=== PATIENT | female | born 1945 | race Caucasian/White ===

== ENCOUNTER 2018-12-11 21:33 | Inpatient (IN) | payer MEDICARE, OTHER ==
[~2018-12-11] VITALS: Ht 157.5 cm; Wt 62.1 kg
[~2018-12-11 21:33] MED LIST: ACET325T53 PO; HYDR-3972 PO; MAG30ORA PO; METO25TA20 PO; RIVA10TA PO; ZOLP5TAB2 PO
[2018-12-11 23:00] VITALS: BP 158/97
[2018-12-11 23:05] VITALS: BP 158/97
[2018-12-11] MEDS ORDERED: ZOLPIDEM TARTRATE 5 MG TABLET PO PRN (23:30)
[2018-12-11] MEDS ORDERED: MAG HYDROX/AL HYDROX/SIMETH 30 ML UDC PO PRN ×2 (23:30)
[2018-12-11] MEDS ORDERED: Z GUARD REMEDY 2 OZ OINT TP PRN (23:30)
[2018-12-11] MEDS ORDERED: HYDROCODONE/APAP 5/325MG 1 EACH TABLET PO PRN (23:30)
[2018-12-11] MEDS ORDERED: ACETAMINOPHEN 325 MG TABLET PO PRN (23:30)
[2018-12-11] MEDS ORDERED: MAGNESIUM HYDROXIDE 30 ML UDC PO PRN (23:30)
[2018-12-11] MEDS: IV NS 0.9% 1,000 ML IV PRN (23:54)
[2018-12-12] MEDS: MORPHINE SULFATE INJ 2 MG/ML DISP.SYRIN IV PRN ×4 (01:28→16:44)
--- NOTE | 2018-12-12 02:13 | NUR ---
RECEIVE PT FROM [facility] [employer] [employer] WITH 2 EMT ADMIT PT TO MED SURG UNIT AT 12/11/2018 AT 2300 S/P GROUND LEVEL FALL DENIES HITTING HEAD, NO CHEST PAIN. WELL DEVELOPED. ALERT TO PERSON, PLACE, TIME APPEARS WELL NOURISHED NOT IN DISTRESS STABLE RESPIRATIONS EVEN AND UNLABORED, SKIN IS WARM NO RASH NOTED, AFEBRILE, TOLERATING ROOM AIR. HEAD TO TOE ASSESSMENT IS DONE SKIN INTACT, NO REDNESS, KEPT CLEAN AND DRY, COMFORTABLE. DECREASED ROM TO THE LEFT LEG, SENSATION OF THE BOTH LEG INTACT. NWB LEFT LEG. SAFETY MEASURES AT ALL TIMES. WILL CONTINUE TO MONITOR.
--- NOTE | 2018-12-12 06:29 | NUR ---
MS RN SLEPT WELL THROUGHOUT THE NIGHT. NO SIGNIFICANT CHANGES THROUGHOUT THE SHIFT. RESPIRATIONS EVEN AND UNLABORED. KEPT CLEAN AND DRY AND COMFORTABLE. NEEDS ATTENDED AND ANTICIPATED, AM CARE RENDERED, SENSATION OF THE BOTH LEG INTACT. NWB LEFT LEG, OFFLOAD HEELS AND ELBOWS. ASSISTED REPOSITION EVERY 2 HOURS. SAFETY MEASURES AT ALL TIMES. ENDORSE TO THE NEXT SHIFT.
[2018-12-12] MEDS: PANTOPRAZOLE 40 MG TABLET.DR PO SCH ×2 (07:30→08:39)
[2018-12-12 08:00] VITALS: BP 155/80
--- NOTE | 2018-12-12 08:00 | NUR ---
RN NOTES RECEIVED PATIENT IN THE BED A/O X4, PATIENT HAS NO ACUTE RESPIRATORY DISTRESS. PATIENT HAS A LEFT FEMUR FRACTURE PER X-RAY. PATIENT REFUSED PAIN. SEEN BY MATERIAL HANDLER [address] SH[address] Dr. BURCIAGA, AND GEARCASE ASSEMBLER Dr. CAR. ORTHO CONSULT ON Dr ORELLANA AWARE OF. ASSIST TURN AND REPOSTION Q 2 HR. CARVER CATHETER DRAINING LIGHT YELLOW OUTPUT, IV ACCESS ON RIGHT AC AREA INFUSING NS AT 75 ML/HR INTACT. CALL LIGHT WITHIN TO REACH. CONTINUED MONITORING.
[2018-12-12 08:17] LABS: APPEARANCE,URINE CLOUDY (CLEAR); BILIRUBIN,URINE NEGATIVE (NEGATIVE); BLOOD, URINE 2+ Ery/uL (NEGATIVE); COLOR,URINE YELLOW (YELLOW); KETONES,URINE 1+ (NEGATIVE); LEUKOCYTE ESTERASE ,URINE NEGATIVE (NEGATIVE); NITRITE, URINE NEGATIVE (NEGATIVE); PROTEIN,URINE NEGATIVE (NEGATIVE); UGLUCOSE NEGATIVE (NEGATIVE); UROBILINOGEN,URINE 0.2 EU/dL (0.2)
[2018-12-12] MEDS: DOCUSATE SODIUM 100 MG CAPSULE PO SCH ×3 (08:39→16:43)
[2018-12-12] MEDS: METOPROLOL TARTRATE 25 MG TABLET PO SCH ×3 (08:40→21:00)
--- NOTE | 2018-12-12 08:44 | NUR ---
rn notes Patient refused scheduled medication, v/s taken bp 155/80, p-80. patient state "I am not taking medication at home". patient stable. refused pain at this time. call light within to reach, safety precaution maintained all the time.
[2018-12-12 09:17] LABS: URINE AMORPHOUS URATE Many /HPF (None Seen)
[2018-12-12 09:18] LABS: BACTERIA,URINE Rare /HPF (None Seen); SQUAMOUS EPITHELIAL CELL,UR None Seen /HPF (None Seen); WBC,URINE 0-2 /HPF (0-3)
[2018-12-12 09:42] LABS: BASOPHILS # (AUTO) 0.1 /CMM (0.0-0.2); BASOPHILS % (AUTO) 0.4 % (0.0-2.0); EOSINOPHILS % (AUTO) 0.3 % (0.0-6.0); HEMATOCRIT 36 % (33-45); LYMPHOCYTES # (AUTO) 1.9 /CMM (0.8-4.8); LYMPHOCYTES % (AUTO) 13.5 % (20.0-44.0); MEAN CORPUSCULAR HGB CONC 33 g/dl (31.0-36.0); MEAN CORPUSCULAR VOLUME 86 fL (82-100); MONOCYTES # (AUTO) 0.8 /CMM (0.1-1.30); MONOCYTES % (AUTO) 5.5 % (2.0-12.0); NEUTROPHILS # (AUTO) 11.5 /CMM (1.8-8.9); NEUTROPHILS % (AUTO) 80.3 % (43.0-81.0); PLATELET COUNT (AUTO) 205 /CMM (150-450); RED BLOOD CELL COUNT(AUTO) 4.23 MIL/uL (4.0-5.2); WHITE BLOOD COUNT (AUTO) 14.3 K/uL (4.3-11.0)
[2018-12-12 10:00] LABS: ALANINE AMINOTRANSFERASE 15 U/L (12-78); ALBUMIN 2.9 g/dL (3.4-5.0); ALKALINE PHOSPHATASE 70 U/L (46-116); ASPARTATE AMINOTRANSFERASE 14 U/L (15-37); BILIRUBIN,TOTAL 0.7 mg/dL (0.2-1.0); CALCIUM, SERUM 8.3 mg/dL (8.5-10.1); CARBON DIOXIDE 25 mmol/L (21-32); CHLORIDE 105 mmol/L (98-107); CREATININE 0.7 mg/dL (0.6-1.3); GLUCOSE 131 mg/dL (74-106); MAGNESIUM 1.6 mg/dL (1.8-2.4); PHOSPHORUS 3.6 mg/dL (2.5-4.9); SODIUM SERUM 139 mmol/L (136-145); TOTAL PROTEIN, SERUM 6.3 g/dL (6.4-8.2); UREA NITROGEN, BLOOD 11 mg/dL (7-18)
--- NOTE | 2018-12-12 10:14 | NUR ---
rn notes administered morphine sulfate 2 mg/ml iv push for left femur pain 02/05 per patient request, v/s taken bp-155/80, p-88, assist patient turn on right side, pillow between legs, dvt pump on, call light within to reach, continued monitoring.
[2018-12-12 10:16] LABS: CHOLESTEROL 173 mg/dL (<200); HDL CHOLESTEROL 73 mg/dL (40-60); LDL 92 mg/dL (0-99); THYROID STIMULATING HORMONE 0.008 uIU/mL (0.358-3.74); TRIGLYCERIDES 37 mg/dL (30-150)
--- NOTE | 2018-12-12 13:00 | NUR ---
RN NOTES PATIENT SLEEPING. MEDICATION WERE ADMINISTERED FOR PAIN EFFECTIVE, INFUSING NS AT RIGHT AC AT 75 ML/HR INTACT. CALL LIGHT WITHIN TO REACH, CONTINUED MONITORING.
[2018-12-12] MEDS: IV NS 0.9% 1,000 ML IV PRN (15:38)
[2018-12-12 16:00] VITALS: BP 148/74
--- NOTE | 2018-12-12 16:44 | NUR ---
RN NOTES ADMINISTERED MORPHINE 2 MG/ML IV PUSH PER PATIENT REQUEST FOR PAIN 02/05, V/S TAKEN BP-148/74, P-94. ALSO ADMINISTERED SCHEDULED MEDICATION. CONTINUED MONITORING.
[2018-12-12] MEDS: Magnesium 1GM/D5W 100ML PREMIX 100 ML IV SCH ×2 (17:54→19:15)
--- NOTE | 2018-12-12 18:30 | NUR ---
RN NOTES PATIENT EATING, STABLE AT THIS TIME. MEDICATION WERE ADMINISTERED FOR PAIN EFFECTIVE. CALL LIGHT WITHIN TO REACH. F/C DRAINING LIGHT YELLOW OUTPUT. ENDORSED ONCOMING NURSE FOR PLAN OF CARE.
--- NOTE | 2018-12-12 19:30 | NUR ---
RN PM OPENING NOTE BEDSIDE REPORT RECIEVED FROM KEYSHA ODELL. PATIENT STABLE AT THIS TIME. POC REVIEWED QUESTIONS CONCERNS ADDRESSED. AWAITING TO BE SEEN BY ORTHOPEDIC SURGEON FOR CONSULT LEFT FEMUR FX. IN BED DENIES PAIN AT THIS TIME. BREATHING IS EVEN AND UNLABORED. CALL LIGHT WITHIN REACH. F/C DRAINING LIGHT YELLOW OUTPUT. VERBALIZED UNDERSTANDING TO CALL FOR ASSISTANCE NEEDED.
[2018-12-12 20:00] VITALS: BP 151/71
--- NOTE | 2018-12-12 21:09 | NUR ---
metoprolol refused patient refusing metoprolol. patient states "I only get high blood pressure when i am in the hospital and have to get morphine." patient informed that the doctor ordered the medication to help control bp and that her last recorded bp was high at 151 over 71. patient verbalized understanding but still refusing. patient offered pain medications but states "as long as i don't move i will be fine. I really don't want any medications right now that aren't necessary." informed to call and request if she changes her mind.
[2018-12-13] MEDS: IV NS 0.9% 1,000 ML IV PRN ×2 (04:39→21:38)
[2018-12-13 07:14] LABS: CALCIUM, SERUM 7.9 mg/dL (8.5-10.1); CARBON DIOXIDE 24 mmol/L (21-32); CHLORIDE 99 mmol/L (98-107); CREATININE 0.4 mg/dL (0.6-1.3); GLUCOSE 133 mg/dL (74-106); MAGNESIUM 1.8 mg/dL (1.8-2.4); POTASSIUM 3.5 mmol/L (3.5-5.1); SODIUM SERUM 135 mmol/L (136-145); UREA NITROGEN, BLOOD 6 mg/dL (7-18)
--- NOTE | 2018-12-13 07:15 | NUR ---
RN PM CLOSING NOTES PATIENT NPO. STABLE AT THIS TIME. CALL LIGHT WITHIN REACH. F/C DRAINING LIGHT YELLOW OUTPUT. ENDORSED CARE TO ONCOMING NURSE ALO ODELL PLAN OF CARE. AWAITING ORTHOPEDIC CONSULT WITH DR. ORELLANA.
[2018-12-13] MEDS: PANTOPRAZOLE 40 MG TABLET.DR PO SCH ×2 (07:30→08:13)
[2018-12-13 08:00] VITALS: BP 178/79
--- NOTE | 2018-12-13 08:00 | NUR ---
RN NOTES RECEIVED PATIENT IN THE BED A/O X4, NO ACUTE RESPIRATORY DISTRESS. PATIENT WAS COMPLAINING OF STOMACHACHE, AND PAIN LEFT THIGH. ADMINISTERED SCHEDULED MEDICATION, V/S TAKEN AND FOLLOWED . DVT PUMP ON, ASSIST PATIENT TURN AND REPOSTION Q 2 HR. INFUSING NS AT 75 ML/HR ON LEFT FA INTACT. NEEDS ATTENDED AND ANTICIPATED, CALL LIGHT WITHIN TO REACH. CONTINUED MONITORING.
[2018-12-13] MEDS: CYANOCOBALAMIN 1,000 MCG/ML VIAL IM PRN (08:13)
[2018-12-13] MEDS: MORPHINE SULFATE INJ 2 MG/ML DISP.SYRIN IV PRN (08:13)
--- NOTE | 2018-12-13 08:14 | NUR ---
rn notes administered morphine sulfate 2 mg/ml iv push for pain 8/10 per patient request, also administered Vit B12 right upper deltoid area. patient selective with scheduled medication. continued monitoring.
[2018-12-13 08:19] VITALS: BP 178/79
[2018-12-13 09:00] VITALS: BP 160/75
[2018-12-13] MEDS: DOCUSATE SODIUM 100 MG CAPSULE PO SCH ×2 (09:00→17:20)
[2018-12-13] MEDS: ONDANSETRON HCL/PF 4 MG/2 ML VIAL IVP PRN ×2 (09:26→17:33)
[2018-12-13] MEDS: METOPROLOL TARTRATE 25 MG TABLET PO SCH ×2 (09:26→21:38)
[2018-12-13 11:00] VITALS: BP 152/74
--- NOTE | 2018-12-13 11:00 | NUR ---
RN NOTES PATIENT STABLE, MEDICATION WERE ADMINISTERED FOR PAIN EFFECTIVE, CONTINUED MONITORING.
--- NOTE | 2018-12-13 12:35 | NUR ---
rn notes Patient seen by Letty VILLARREAL. patient plan for surgery tomorrow. Orders taken and carried out.
--- NOTE | 2018-12-13 16:00 | NUR ---
RN NOTES PATIENT SIGN CONSENT FORM FOR SURGERY. ASSIST PATIENT TURN AND REPOSTION Q 2 HR, NEEDS ATTENDED AND ANTICIPATED.
[2018-12-13 16:29] VITALS: BP 147/82
--- NOTE | 2018-12-13 17:33 | NUR ---
RN NOTES ADMINISTER ZOFRAN 4 MG/ML IV PUSH FOR NAUSEA. CONTINUED MONITORING.
--- NOTE | 2018-12-13 18:30 | NUR ---
RN NOTES PATIENT RESTING IN THE BED ON AND OFF. MEDICATION WERE ADMINISTERED FOR NAUSEA EFFECTIVE. V/S STABLE, ADMINISTERED SCHEDULED MEDICATION. INFUSING NS AT 75 ML/HR ON LEFT FA INTACT. CALL LIGHT WITHIN TO REACH. ENDORSED ONCOMING NURSE FOLLOW BIMAL
--- NOTE | 2018-12-13 19:45 | NUR ---
RN OPENING NOTES RECEIVED REPORT FROM DAY SHIFT RN ALO. FOUND Pt AWAKE, RESTING IN BED, WATCHING TV. NO S/S OF ACUTE DISTRESS OR SOB NOTED. RESPIRATIONS EVEN AND UNLABORED, WITH EQUAL CHEST RISE AND FALL. Pt IS A/OX4, VERBAL, ABLE TO MAKE NEEDS KNOWN. NO C/O SEVERE PAIN AT THIS TIME. IV ACCESS ON LFA #20G, IVF NS @75ML/HR. SAFETY MEASURES IN PLACE. BED LOW, LOCKED, HOB ELEVATED, SIDE RAILS UP, CALL LIGHT AND BEDSIDE TABLE WITHIN REACH. WILL CONTINUE TO MONITOR Pt's CONDITION AND SAFETY THROUGHOUT THE NIGHT.
[2018-12-13 20:00] VITALS: BP 155/83
--- NOTE | 2018-12-14 06:50 | NUR ---
RN CLOSING NOTES NO SIGNIFICANT CHANGES IN Pt's CONDITION. Pt REMAINS STABLE AT THIS TIME. Pt IS RESTING IN BED, WITH NO S/S OF ACUTE DISTRESS OR SOB NOTED DURING THE NIGHT. SAFETY MEASURES IN PLACE. BED LOW, LOCKED, HOB ELEVATED, SIDE RAILS UP, CALL LIGHT AND BEDSIDE TABLE WITHIN REACH. CARVER CATHETER IN PLACE, DRAINING WELL. WILL ENDORSE TO DAYSHIFT RN FOR Pt's BIMAL.
[2018-12-14 07:46] LABS: CALCIUM, SERUM 8.2 mg/dL (8.5-10.1); CARBON DIOXIDE 25 mmol/L (21-32); CHLORIDE 101 mmol/L (98-107); CREATININE 0.4 mg/dL (0.6-1.3); GLUCOSE 121 mg/dL (74-106); MAGNESIUM 1.8 mg/dL (1.8-2.4); POTASSIUM 3.4 mmol/L (3.5-5.1); SODIUM SERUM 137 mmol/L (136-145); UREA NITROGEN, BLOOD 8 mg/dL (7-18)
[2018-12-14 08:00] VITALS: BP 138/61
--- NOTE | 2018-12-14 08:00 | NUR ---
m/s legal assistant: initial assessment received pt in bed awake, a/ox4. pt remains npo, pt for left hip intramedullary rodding procedure this afternoon with dr. espinosa. educated pt re: npo and procedure and verbalized understanding. al consents signed and in chart. instructed to call for assistance. will monitor.
[2018-12-14] MEDS: METOPROLOL TARTRATE 25 MG TABLET PO SCH ×3 (08:02→21:44)
[2018-12-14] MEDS: DOCUSATE SODIUM 100 MG CAPSULE PO SCH ×3 (08:02→17:00)
[2018-12-14 08:06] LABS: BASOPHILS # (AUTO) 0.1 /CMM (0.0-0.2); BASOPHILS % (AUTO) 0.4 % (0.0-2.0); EOSINOPHILS % (AUTO) 0.3 % (0.0-6.0); HEMATOCRIT 33 % (33-45); HEMOGLOBIN 11.1 g/dL (11.5-14.8); LYMPHOCYTES % (AUTO) 11.3 % (20.0-44.0); MEAN CORPUSCULAR HGB CONC 34 g/dl (31.0-36.0); MEAN CORPUSCULAR VOLUME 84 fL (82-100); MONOCYTES # (AUTO) 1.2 /CMM (0.1-1.30); MONOCYTES % (AUTO) 6.6 % (2.0-12.0); NEUTROPHILS # (AUTO) 14.4 /CMM (1.8-8.9); NEUTROPHILS % (AUTO) 81.4 % (43.0-81.0); PLATELET COUNT (AUTO) 240 /CMM (150-450); RED BLOOD CELL COUNT(AUTO) 3.92 MIL/uL (4.0-5.2); WHITE BLOOD COUNT (AUTO) 17.7 K/uL (4.3-11.0)
--- NOTE | 2018-12-14 09:30 | NUR ---
m/s top carrier: notes dr. espinosa (ortho) notified and clarify order if pt can have her beta len medication and rest of her meds with order okay to give with sips of water. also check in with dr. marcus and asked md if i can give her potassium chloride all at once instead his previous order on potassium chloride due to surgery this afternoon and received consent okay to give all at once. pt made aware.
[2018-12-14] MEDS: POTASSIUM CHLORIDE 20 MEQ TAB.PRT.SR PO SCH ×2 (09:36→09:41)
[2018-12-14] MEDS: IV NS 0.9% 1,000 ML IV PRN (11:08)
[2018-12-14] MEDS ORDERED: ANESTHESIA TRAY IN PYXIS 1 EA TRAY MC ONE (12:16)
[2018-12-14] MEDS ORDERED: BUPIVACAINE 0.5 % PF 150 MG/30 ML VIAL ONE (12:16)
[2018-12-14] MEDS ORDERED: BACITRACIN 50000 UNITS/VIAL ONE (12:16)
--- NOTE | 2018-12-14 12:38 | NUR ---
m/s cyber incident handler: notes taken by o.r. team for surgery. pt has been npo since midnight.
[2018-12-14] MEDS ORDERED: CLINDAMYCIN 900 MG/6 ML VIAL ONE (12:45)
[2018-12-14 15:00] VITALS: BP 129/77
--- NOTE | 2018-12-14 15:00 | NUR ---
m/s administrative assistant: notes received pt from recovery room with dx: s/p left hip im rodding with surgical dressing in place. no active bleeding noted. ble dvt pump in place. pt fully awake, a/ox4. no c/o pain at this time. pt request for coca cola and water. orders received and faxed to pharmacy. place call light within reach. vss, afebrile. will continue to monitor.
[2018-12-14 15:15] VITALS: BP 130/72
[2018-12-14 15:45] VITALS: BP 135/61
[2018-12-14 16:00] VITALS: BP 150/82
--- NOTE | 2018-12-14 16:00 | NUR ---
m/s manager park: notes pt having her late lunch. c/o slight burning to her left hip area. no bleeding or discharge noted. pt also request to have her ble pump turned off. offered pain med, but refused, stated, "morphine gives me a shaky feeling and i don't want to tylenol or anything at this time." instructed to call for assistance. will continue to monitor.
--- NOTE | 2018-12-14 17:00 | NUR ---
m/s black top spreader machine operator: notes offered stool softener again, but pt refused. pt also refused this morning.
--- NOTE | 2018-12-14 17:30 | NUR ---
m/s chief security and safety officer: visit seen and examined by shankar lilly ([facility]) at this time. all questions and concerns answered by shankar at bedside. instructed to call for assistance. will continue to monitor. call light within reach. dinner served with hob elevated.
--- NOTE | 2018-12-14 18:40 | NUR ---
m/s small animal veterinarian: notes pt sounds asleep. no distress noted. needs attended. will continue to monitor.
--- NOTE | 2018-12-14 19:00 | NUR ---
m/s supervisor metal placing: notes received new orders from shankar ([facility]) for hematology/oncology consult due to Reason for Consultation: <2.6cm TI-RADS 4 nodule right lobe on thyroid US.
--- NOTE | 2018-12-14 19:50 | NUR ---
RN OPENING NOTES RECEIVED REPORT FROM ISELAWYFT RNSHAGGY. FOUND Pt AWAKE, RESTING IN BED, WATCHING TV. NO S/S OF ACUTE DISTRESS OR SOB NOTED. RESPIRATIONS EVEN AND UNLABORED, WITH EQUAL CHEST RISE AND FALL. Pt IS A/OX4, VERBAL, ABLE TO MAKE NEEDS KNOWN. IV ACCESS ON LFA #20G, IVF NS @75ML/HR. S/P L HIP IM RODDING WITH DR GREENWOOD's TODAY; Pt RETURNED @1500. SAFETY MEASURES IN PLACE. BED LOW, LOCKED, HOB ELEVATED, SIDE RAILS UP, CALL LIGHT AND BEDSIDE TABLE WITHIN REACH. WILL CONTINUE TO MONITOR Pt's CONDITION AND SAFETY THROUGHOUT THE SHIFT.
[2018-12-14 20:00] VITALS: BP 133/67
[2018-12-15] MEDS: CLINDAMYCIN 900 MG in IV D5W 50 ML IV SCH ×3 (01:03→18:37)
--- NOTE | 2018-12-15 06:40 | NUR ---
RN CLOSING NOTES NO SIGNIFICANT CHANGES IN Pt's CONDITION. Pt REMAINS STABLE AT THIS TIME. NO S/S OF ACUTE DISTRESS OR SOB NOTED DURING THE NIGHT. Pt IS RESTING IN BED, RESPIRATIONS EVEN AND UNLABORED, WITH EQUAL CHEST RISE AND FALL. NO C/O PAIN DURING THE NIGHT. SAFETY MEASURES IN PLACE. BED LOW, LOCKED, HOB ELEVATED, SIDE RAILS UP, CALL LIGHT AND BEDSIDE TABLE WITHIN REACH. BED ALARM ON. WILL ENDORSE TO DAYSHIFT RN FOR Pt's BIMAL.
[2018-12-15] MEDS: PANTOPRAZOLE 40 MG TABLET.DR PO SCH ×2 (07:30→07:40)
[2018-12-15] MEDS: IV NS 0.9% 1,000 ML IV PRN (07:40)
[2018-12-15 08:00] VITALS: BP_SYST 117; BP_SYST 132; BP_DIAS 54; BP_DIAS 82
[2018-12-15 08:16] LABS: BASOPHILS % (AUTO) 0.2 % (0.0-2.0); EOSINOPHILS % (AUTO) 0.1 % (0.0-6.0); HEMATOCRIT 28 % (33-45); HEMOGLOBIN 9.2 g/dL (11.5-14.8); LYMPHOCYTES # (AUTO) 1.8 /CMM (0.8-4.8); LYMPHOCYTES % (AUTO) 11.5 % (20.0-44.0); MEAN CORPUSCULAR HGB CONC 33 g/dl (31.0-36.0); MEAN CORPUSCULAR VOLUME 86 fL (82-100); MONOCYTES # (AUTO) 1.3 /CMM (0.1-1.30); MONOCYTES % (AUTO) 8.3 % (2.0-12.0); NEUTROPHILS # (AUTO) 12.6 /CMM (1.8-8.9); NEUTROPHILS % (AUTO) 79.9 % (43.0-81.0); PLATELET COUNT (AUTO) 228 /CMM (150-450); RED BLOOD CELL COUNT(AUTO) 3.26 MIL/uL (4.0-5.2); WHITE BLOOD COUNT (AUTO) 15.7 K/uL (4.3-11.0)
[2018-12-15 08:48] LABS: CALCIUM, SERUM 7.9 mg/dL (8.5-10.1); CARBON DIOXIDE 25 mmol/L (21-32); CHLORIDE 105 mmol/L (98-107); CREATININE 0.5 mg/dL (0.6-1.3); GLUCOSE 124 mg/dL (74-106); MAGNESIUM 1.7 mg/dL (1.8-2.4); PHOSPHORUS 3.5 mg/dL (2.5-4.9); POTASSIUM 3.7 mmol/L (3.5-5.1); SODIUM SERUM 139 mmol/L (136-145); UREA NITROGEN, BLOOD 11 mg/dL (7-18)
[2018-12-15] MEDS: DOCUSATE SODIUM 100 MG CAPSULE PO SCH ×2 (09:00→17:00)
[2018-12-15] MEDS: METOPROLOL TARTRATE 25 MG TABLET PO SCH ×2 (09:00→21:00)
[2018-12-15] MEDS ORDERED: FERROUS SULFATE (325 MG) 325 MG/TAB TABLET PO SCH (09:00)
--- NOTE | 2018-12-15 11:32 | NUR ---
PROCEDURE ON HOLD, PER MD NERI, PATIENT HAD HIP SURGERY YESTERDAY, MD NERI WILL CALL THE ORDERING MD REGARDING ORDER, WAITING FOR NEW INSTRUCTIONS
[2018-12-15] MEDS: CYANOCOBALAMIN 1,000 MCG/ML VIAL IM PRN (11:37)
[2018-12-15] MEDS: Magnesium 1GM/D5W 100ML PREMIX 100 ML IV SCH ×2 (11:37→12:58)
[2018-12-15] MEDS: ENOXAPARIN SODIUM 40 MG/0.4 ML DISP.SYRIN SQ SCH (13:00)
--- NOTE | 2018-12-15 14:17 | NUR ---
PER MD NERI, PROCEDURE WILL BE CANCELLED , AND IS GOING TO BE DONE WHEN PATIENT RECOVERS FROM SURGERY
[2018-12-15 16:00] VITALS: BP 113/53
--- NOTE | 2018-12-15 19:30 | NUR ---
MS RN NOTES RECEIVED ON BED A/O X4,BREATHING EASY.NO SOB,S/O LEFT HIP INTRA MEDULLARY RODDING ON 12/14/18,DRESSING INTACT AND DRY,FIRST DRESSING CHANGE TOMORROW.PAIN TOLERABLE AT THE MOMENT.IVF IN PROGRESS AT 75ML/HR RATE VIA IV PUMP.SITE PATENT ON LFA.CARVER CATH IN PLACE DRAINING YELLOWISH OUTPUT.DVT PUMP IN USED FOR DVT PROPHYLAXIS.CALL LIGHT IN REACH,NEEDS ANTICIPATED.
[2018-12-15 20:00] VITALS: BP 116/56
--- NOTE | 2018-12-15 21:00 | NUR ---
MS RN NOTES BLOOD PRESSURE 116/56,LOPRESSOR 50MG PO REFUSED/HELD.
[2018-12-15] MEDS: CARBOXYMETHYLCELLULOSE SODIUM 0.4 ML DROPERETTE EACHEYE PRN (21:04)
--- NOTE | 2018-12-15 23:00 | NUR ---
MS RN NOTES REFUSED IV THIS TIME.PAIN TOLERABLE ON SURGICAL SITE,WANTS ONLY ICE PACK.
--- NOTE | 2018-12-16 06:00 | NUR ---
MS RN NOTES REPOSITION PER PROTOCOL,CARVER CATH DRAINS WELL.OFFERED IVF BUT REFUSED.CLAIMED SHE'LL EAT TODAY.REFUSED DVT PUMP THIS TIME.CALL LIGHT IN REACH,NEEDS ATTENDED.WILL ENDORSE TO DAY NURSE FOR BIMAL.
--- NOTE | 2018-12-16 07:00 | NUR ---
RECEIVED PATIENT AWAKE, ALERT AND ORIENTED X4. BREATHING UNLABORED AND EVEN ON ROOM AIR. NO COMPLAINS OF PAIN AT THIS TIME. F/C IN PLACE. IV LINE INTACT AND PATENT.
--- NOTE | 2018-12-16 07:30 | NUR ---
PATIENT REFUSED AM BLOOD DRAW
[2018-12-16 08:00] VITALS: BP 129/56
[2018-12-16 08:07] LABS: IMMUNOGLOBULIN A, SERUM 284 mg/dL (64-422); IMMUNOGLOBULIN G, SERUM 646 mg/dL (700-1600); IMMUNOGLOBULIN M, SERUM 60 mg/dL (26-217)
[2018-12-16] MEDS: PANTOPRAZOLE 40 MG TABLET.DR PO SCH (08:46)
[2018-12-16] MEDS: METOPROLOL TARTRATE 25 MG TABLET PO SCH ×2 (08:47→21:00)
[2018-12-16] MEDS: DOCUSATE SODIUM 100 MG CAPSULE PO SCH ×2 (08:48→17:42)
[2018-12-16] MEDS ORDERED: MUPIROCIN OINT 2% 22 GM TUBE SCH (09:00)
[2018-12-16] MEDS: CARBOXYMETHYLCELLULOSE SODIUM 0.4 ML DROPERETTE EACHEYE PRN (10:23)
--- NOTE | 2018-12-16 10:30 | NUR ---
RECEIVED CALL FROM US DEPARTMENT: PATIENT SCHEDULED FOR US GUIDED BIOPSY TOMORROW ON 12/17/18. PATIENT AGREED .
[2018-12-16 12:55] LABS: BASOPHILS # (AUTO) 0.1 /CMM (0.0-0.2); BASOPHILS % (AUTO) 0.3 % (0.0-2.0); EOSINOPHILS % (AUTO) 0.9 % (0.0-6.0); HEMATOCRIT 26 % (33-45); HEMOGLOBIN 8.7 g/dL (11.5-14.8); LYMPHOCYTES # (AUTO) 2.1 /CMM (0.8-4.8); MEAN CORPUSCULAR HGB CONC 34 g/dl (31.0-36.0); MEAN CORPUSCULAR VOLUME 85 fL (82-100); MONOCYTES # (AUTO) 1.3 /CMM (0.1-1.30); MONOCYTES % (AUTO) 8.4 % (2.0-12.0); NEUTROPHILS # (AUTO) 11.5 /CMM (1.8-8.9); NEUTROPHILS % (AUTO) 76.4 % (43.0-81.0); PLATELET COUNT (AUTO) 209 /CMM (150-450); RED BLOOD CELL COUNT(AUTO) 3.06 MIL/uL (4.0-5.2); WHITE BLOOD COUNT (AUTO) 15.1 K/uL (4.3-11.0)
[2018-12-16 13:11] LABS: CALCIUM, SERUM 7.8 mg/dL (8.5-10.1); CARBON DIOXIDE 25 mmol/L (21-32); CHLORIDE 101 mmol/L (98-107); CREATININE 0.5 mg/dL (0.6-1.3); GLUCOSE 109 mg/dL (74-106); MAGNESIUM 1.5 mg/dL (1.8-2.4); POTASSIUM 3.1 mmol/L (3.5-5.1); SODIUM SERUM 137 mmol/L (136-145); UREA NITROGEN, BLOOD 10 mg/dL (7-18)
--- NOTE | 2018-12-16 13:55 | NUR ---
DRESSING CHANGED BY GEMINI Welsh. NO BLEEDING, NO REDNESS NOTED
[2018-12-16] MEDS ORDERED: POLYVINYL ALCOHOL 15 ML BOTTLE EACHEYE PRN (14:00)
[2018-12-16] MEDS: ENOXAPARIN SODIUM 40 MG/0.4 ML DISP.SYRIN SQ SCH (14:10)
--- NOTE | 2018-12-16 14:15 | NUR ---
NIURKA MARTINEZ REGARDING PATIENTS K 3.1
[2018-12-16 15:10] LABS: *SPE ALBUMIN 2.5 g/dL (2.9-4.4); *SPE ALPHA-1-GLOBULIN 0.4 g/dL (0.0-0.4); *SPE ALPHA-2-GLOBULIN 0.7 g/dL (0.4-1.0); *SPE BETA GLOBULIN 0.8 g/dL (0.7-1.3); *SPE GLOBULIN, TOTAL 2.5 g/dL (2.2-3.9); *SPE M-SPIKE Not Observed g/dL (Not Observed); *SPEGAMMA GLOBULIN 0.6 g/dL (0.4-1.8)
[2018-12-16] MEDS: SOD FERRIC GLUC 125 MG in IV NS 0.9% 100 ML IV SCH (15:24)
[2018-12-16] MEDS: CYANOCOBALAMIN 1,000 MCG/ML VIAL IM PRN (15:34)
[2018-12-16 16:00] VITALS: BP 125/53
--- NOTE | 2018-12-16 19:36 | NUR ---
PATIENT A/O X4 , IN STABLE CONDITION, POSSIBLE D/C TOMORROW TO SNF. WILL ENDORSE TO NEXT SHIFT FOR BIMAL.
--- NOTE | 2018-12-16 19:50 | NUR ---
MS RN NOTES RECEIVED ON BED A/O X4,TALKING WITH VISITOR,S/P LEFT HIP IM RODDING 12/14,DRESSING INTACT AND DRY.DRESSING CHANGE DONE TODAY BY COURY.SALINE LOCK LFA INTACT AND PATENT.NS AT 75ML/HR RATE ON HOLD.PATIENT ABLE TO ATE REGULAR FOOD.DVT PUMP REFUSED.CARVER CATH IN PLACE,DRAINS WELL.CALL LIGHT IN REACH,NEEDS ANTICIPATED.
[2018-12-16 20:00] VITALS: BP 128/61
--- NOTE | 2018-12-16 21:00 | NUR ---
MS RN NOTES OFFERED DUE BLOOD PRESSURE PILL,LOPRESSOR 50MG BUT REFUSED.BLOOD PRESSURE AT 1999 WAS 128/61,PULSE 94.SHE WANTS BLOOD PRESSURE RECHECK AND IT WAS 119/57,REFUSED BLOOD PRESSURE PILL,WASTED.
[2018-12-17] VITALS: BP 123/53
--- NOTE | 2018-12-17 | NUR ---
MS RN NOTES SLEEPING,BREATHING EASY,NO SOB,KEPT WARM AND COMFORTABLE.
--- NOTE | 2018-12-17 00:30 | NUR ---
MS RN NOTES AWAKE THIS TIME TIME AND SHE'S SAYING SHE'S CALLING FOR ALMOST 3 HOURS ALREADY,PATIENT JUST WOKE,KELSY CORRALES WENT INSIDE THE ROOM AND SHE WANTS THE AIRCON ADJUSTED.
--- NOTE | 2018-12-17 06:14 | NUR ---
MS RN NOTES FAIRLY RESTED AT NIGHT.GOING FOR ULTRASOUND BIOPSY TODAY,KEPT NPO,CARVER CATH DRAINS WELL.IN NO ACUTE DISTRESS.CALL LIGHT IN REACH,NEEDS ATTENDED.WILL ENDORSE TO DAY NURSE FOR CO.
[2018-12-17] MEDS: PANTOPRAZOLE 40 MG TABLET.DR PO SCH (07:30)
--- NOTE | 2018-12-17 07:36 | NUR ---
MS RN OPENING NOTES RECEIVED PT SITTING UP AT THE EDGE OF THE BED. PT IS A/O X4, AFEBRILE. RESPIRATIONS ARE EVEN AND UNLABORED, NOT IN ANY ACUTE DISTRESS NOTED. DENIES ANY PAIN, NO C/O SOB, N/V. IV SITE TO LFA INTACT, NO INFILTRATION NOTED. DRESSING KEPT CLEAN AND DRY. SAFETY MEASURES ARE IN PLACE. INSTRUCTED PT TO USE CALL LIGHT WHEN ASSISTANCE IS NEEDED, CALL LIGHT IS LEFT WITHIN REACH. WILL MONITOR THROUGHOUT SHIFT FOR CONTINUITY OF CARE.
[2018-12-17 08:00] VITALS: BP 124/53
[2018-12-17] MEDS: DOCUSATE SODIUM 100 MG CAPSULE PO SCH ×2 (08:14→16:45)
[2018-12-17] MEDS: METOPROLOL TARTRATE 25 MG TABLET PO SCH (08:15)
--- NOTE | 2018-12-17 08:15 | NUR ---
MS RN NOTES-- PT REFUSED ALL MORNING MEDICATIONS: PROTONIX, METOPROLOL AND COLACE. EXPLAINED THE RISKS AND BENEFITS FOR ALL 3 MEDICATIONS, PT STILL REFUSED. WILL CONTINUE TO MONITOR CLOSELY.
[2018-12-17 11:10] LABS: BASOPHILS # (AUTO) 0.1 /CMM (0.0-0.2); BASOPHILS % (AUTO) 0.8 % (0.0-2.0); EOSINOPHILS % (AUTO) 2.2 % (0.0-6.0); HEMATOCRIT 28 % (33-45); HEMOGLOBIN 9.6 g/dL (11.5-14.8); LYMPHOCYTES # (AUTO) 2.5 /CMM (0.8-4.8); MEAN CORPUSCULAR HGB CONC 34 g/dl (31.0-36.0); MEAN CORPUSCULAR VOLUME 86 fL (82-100); NEUTROPHILS # (AUTO) 10.1 /CMM (1.8-8.9); PLATELET COUNT (AUTO) 250 /CMM (150-450); RED BLOOD CELL COUNT(AUTO) 3.32 MIL/uL (4.0-5.2)
[2018-12-17 11:20] LABS: CALCIUM, SERUM 8.1 mg/dL (8.5-10.1); CARBON DIOXIDE 25 mmol/L (21-32); CHLORIDE 102 mmol/L (98-107); CREATININE 0.6 mg/dL (0.6-1.3); GLUCOSE 131 mg/dL (74-106); SODIUM SERUM 138 mmol/L (136-145); UREA NITROGEN, BLOOD 10 mg/dL (7-18)
--- NOTE | 2018-12-17 12:11 | NUR ---
MS RN NOTES-- RELAYED K LEVEL RESULTS TO CARMELITA HEARD NP W/ NEW ORDER FOR KDUR 40MEQ PO X1. ALSO NOTIFIED CARMELITA HEARD NP RE: THYROID BIOPSY PT REFUSES TO DO IT TODAY. RECEIVED A CALL FROM [facility] [employer] THAT PT WILL NEED TO LAY FLAT. PER PT SHE CANT LAY FLAT ON HER BACK FOR A LONG TIME.
--- NOTE | 2018-12-17 12:20 | NUR ---
MS RN NOTES-- [facility], SPOKE W/ NILDA, RE: SCHEDULED FERRILICIT. PER NILDA, THEY WILL SEND IT UP.
[2018-12-17] MEDS: ENOXAPARIN SODIUM 40 MG/0.4 ML DISP.SYRIN SQ SCH (12:25)
[2018-12-17] MEDS ORDERED: POTASSIUM CHLORIDE 20 MEQ TAB.PRT.SR PO ONE (12:30)
[2018-12-17] MEDS: CYANOCOBALAMIN 1,000 MCG/ML VIAL IM PRN (13:23)
[2018-12-17] MEDS: SOD FERRIC GLUC 125 MG in IV NS 0.9% 100 ML IV SCH (13:23)
[2018-12-17 16:00] VITALS: BP 128/60
[2018-12-17] MEDS ORDERED: DOCU-270 PO (17:08)
[2018-12-17] MEDS ORDERED: ENOX40DI SQ (17:08)
--- NOTE | 2018-12-17 18:09 | NUR ---
MS RN NOTES-- CALLED [facility], GAVE REPORT TO JOSE R VO.
--- NOTE | 2018-12-17 19:27 | NUR ---
MS INSPECTOR BALL POINTS NOTE [facility] ACCOMPANIED BY 2 EMT PERSONNEL IN STABLE CONDITION. PT IS A/O X4, AFEBRILE. RESPIRATIONS ARE EVEN AND UNLABORED, NOT IN ANY ACUTE DISTRESS NOTED. PUPILS ARE REACTIVE TO LIGHT, BILATERAL HAND ORE TRIMMER ARE STRONG AND EQUAL. PT C/O PAIN 5/10 TO LEFT HIP BUT REFUSES TO TAKE ANY PAIN MEDICATION. PT DENIES ANY SOB, N/V. ABDOMEN IS SOFT AND NONDISTENDED, BOWEL SOUNDS ARE PRESENT IN ALL 4 QUADRANTS UPON AUSCULTATION. DENIES ANY BLDDER DISCOMFORT. PICTURES TAKEN TO LEFT HIP WITH PO IN PLACE, DRESSING CHANGED. EXPLAINED DISCHARGE PAPERWORK TO PT WITH VERBAL AND WRITTEN UNDERSTANDING. SPOKE WITH TAVO AND EXPLAINED FOLLOW UP APPOINTMENTS. ALL BELONGINGS SENT WITH PT. PT LEFT IN STABLE CONDITION VIA [facility].
== END 2018-12-17 19:38 | DRG 481 ==
LOC: MED 22:56
PROVIDERS: ADMIT Registered Nurse; ATTEND Nurse Practitioner Acute Care
PROC: 0QH706Z Insertion of Intramedullary Internal Fixation Device into Left Upper Femur, Open Approach (ICD-10-PCS; principal; 2018-12-14)
DX: M80.852A Other osteoporosis with current pathological fracture, left femur, initial encounter for fracture (principal); E87.1 Hypo-osmolality and hyponatremia; Y92.009 Unspecified place in unspecified non-institutional (private) residence as the place of occurrence of the external cause; J44.9 Chronic obstructive pulmonary disease, unspecified; I10 Essential (primary) hypertension; M79.7 Fibromyalgia; E78.5 Hyperlipidemia, unspecified; W01.0XXA Fall on same level from slipping, tripping and stumbling without subsequent striking against object, initial encounter; E87.6 Hypokalemia; E83.42 Hypomagnesemia; J32.9 Chronic sinusitis, unspecified; E05.20 Thyrotoxicosis with toxic multinodular goiter without thyrotoxic crisis or storm; D50.9 Iron deficiency anemia, unspecified; Z91.81 History of falling; Z87.891 Personal history of nicotine dependence; Z79.01 Long term (current) use of anticoagulants; D72.829 Elevated white blood cell count, unspecified; F32.9 Major depressive disorder, single episode, unspecified
CPT/HCPCS: 36415; 71045-TC; 73020; 73552; 73564-TC; 76536-TC; 80048-TC; 80053-TC; 80061-TC; 81000-TC; 82728-TC; 82784; 83540-TC; 83735-TC; 84100-TC; 84155; 84165; 84439-TC; 84443-TC; 85025-TC; 85730-TC; 86334; 86800; 86850-TC; 87081-TC; 93307-TC; 97110-TC; 97530-TC; A6209; C1713; G0378; J1100; J1650; J2270; J2370; J2405; J2916; J3420; J3475; J3490; J7030; J7060

== ENCOUNTER 2019-03-25 12:19 | Outpatient (CLI) | payer MEDICARE, OTHER ==
[~2019-03-25 12:19] MED LIST changes: +DOCU-270 PO; +ENOX40DI SQ; -RIVA10TA PO
== END 2019-03-25 23:59 | disposition home or self-care (01) ==
LOC: CARD 12:19
PROVIDERS: ATTEND Student in an Organized Health Care Education/Training Program
DX: I82.412 Acute embolism and thrombosis of left femoral vein (principal); I10 Essential (primary) hypertension; J44.9 Chronic obstructive pulmonary disease, unspecified
CPT/HCPCS: 93971-TC